=== PATIENT | female | born 1945 ===

== ENCOUNTER 2021-02-06 12:30 | Inpatient (IN) | payer OTHER ==
[~2021-02-06] VITALS: Ht 157.5 cm; Wt 62.6 kg
[2021-02-06] MEDS ORDERED: PROTONIX40 MG PO (13:45)
[2021-02-06] MEDS ORDERED: TOPROL XL25 M1 PO (13:45)
[2021-02-06] MEDS ORDERED: ZOCOR20 MG PO (13:45)
[2021-02-06] MEDS ORDERED: SINGULAIR10 MG PO (13:46)
[2021-02-06] MEDS ORDERED: SYNTHROID50 MCG PO (13:46)
[2021-02-06] MEDS ORDERED: GLUCOTROL XL5 MG PO (13:46)
[2021-02-06] MEDS ORDERED: NORVASC5 MG PO (13:46)
[2021-02-06] MEDS ORDERED: FOSAMAX70 MG PO (13:47)
[2021-02-06] MEDS ORDERED: ETODOLAC400 M1 PO (13:47)
[2021-02-13] MEDS ORDERED: CILOSTAZOL100 MG (08:07)
[2021-02-13] MEDS ORDERED: FLONASE16 GM (08:08)
[2021-02-13] MEDS ORDERED: LOPRESSOR25 MG (08:08)
== END 2021-02-16 17:45 | disposition home or self-care (01) | DRG 334 ==
LOC: SURG 02-13 05:58 → O/R 02-13 05:58 → SURH 02-13 10:00 → SURG 02-13 13:15 → O/R 02-14 15:42 → SURG 02-14 15:46
PROVIDERS: ADMIT Colon & Rectal Surgery; ATTEND Colon & Rectal Surgery
PROC: 3E0F7SF Introduction of Other Gas into Respiratory Tract, Via Natural or Artificial Opening (ICD-10-PCS; 2021-02-13)
PROC: 0DBP4ZZ Excision of Rectum, Percutaneous Endoscopic Approach (ICD-10-PCS; principal; 2021-02-13 10:00)
DX: K57.32 Diverticulitis of large intestine without perforation or abscess without bleeding (principal); I10 Essential (primary) hypertension; E11.9 Type 2 diabetes mellitus without complications; Z79.4 Long term (current) use of insulin